=== PATIENT | male | born 1950 | race Caucasian/White ===

== ENCOUNTER 2023-02-24 01:07 | Emergency (ER) | payer OTHER ==
[2023-02-24 01:32] LABS: #Basophils 0.1 thou/uL (0.0-0.2); #Eosinphils 0.1 thou/uL (0.0-0.7); #Lymphocytes 1.7 thou/uL (1.20-3.40); #Monocytes 0.4 thou/uL (0.11-0.59); #Neutrophils 6.4 thou/uL (1.40-6.50); %Basophils 0.9 % (0.0-1.0); %Eosinophils 0.6 % (0.0-10.0); %Lymphocytes 19.6 % (21.0-51.0); %Neutrophils 73.8 % (42.0-75.0); Hemoglobin 14.6 g/dL (14.0-18.0); Mean Corpuscular HGB CONC 35.5 g/dL (32.0-36.0); Mean Corpuscular Hemoglobin 31.6 pg (27.0-31.0); Mean Corpuscular Volume 89.1 fl (78.0-98.0); Mean Platelet Volume 7.1 fL (7.4-10.4); Platelet Count 165 10x3/uL (130-400); RBC Distribution Width 12.2 % (11.5-14.5); Red Blood Cell (RBC) Count 4.62 mill/uL (4.70-6.10); White Blood Cell (WBC) Count 8.7 10x3/uL (4.8-10.8)
[2023-02-24 01:45] LABS: ALT (SGPT) 25 U/L (8-55); AST (SGOT) 30 U/L (5-34); Albumin 4.1 g/dL (3.4-4.8); Alkaline Phosphatase 54 U/L (40-110); Anion Gap 17 mmol/L (10-20); BUN (Urea Nitrogen) 8 mg/dL (8.4-25.7); Bilirubin, Total 0.4 mg/dL (0.2-1.2); Calc. Creatinine Clearance 0 mL/min (70-130); Calcium 8.8 mg/dL (7.8-10.44); Carbon Dioxide 17 mmol/L (23-31); Chloride 105 mmol/L (98-107); Estimated GFR 87; Globulin 3.3 g/dL (2.4-3.5); Glucose 106 mg/dL (83-110); Potassium 4.2 mmol/L (3.5-5.1); Protein, Total 7.4 g/dL (5.8-8.1); Sodium 135 mmol/L (136-145)
[2023-02-24] MEDS ORDERED: Boostrix 0.5 ML (Tdap) VIAL (>/=7 yrs of age) ONE (01:52)
== END 2023-02-24 02:59 ==
LOC: NAV ERS 01:07 → EEVIPCON 01:07 → NAV ERS 02:59
DX: S09.90XA Unspecified injury of head, initial encounter (principal); F10.129 Alcohol abuse with intoxication, unspecified; V89.2XXA Person injured in unspecified motor-vehicle accident, traffic, initial encounter
CPT/HCPCS: 70450; 72125; 80053; 85025; 90471; 90715